=== PATIENT | male | born 1985 | race Two or more races ===

== ENCOUNTER 2016-12-19 19:54 | Emergency (ER) | payer SELFPAY ==
--- NOTE | 2016-12-19 20:00 | NUR ---
CALLED FOR TRIAGE. STATES " NEED MRI DONE NOW" AND WHEN INFORMED HE IT TAKES A WHILE TO ORDER PT DECIDED TO LEAVE"
== END 2016-12-19 20:07 | disposition left against medical advice (07) ==
LOC: ER 20:06
DX: Z53.21 Procedure and treatment not carried out due to patient leaving prior to being seen by health care provider (principal)